=== PATIENT | male | born 1985 | race Caucasian/White ===

== ENCOUNTER 2025-04-13 11:46 | Emergency (ER) | payer OTHER, SELFPAY ==
[2025-04-13 12:00] VITALS: BP 146/67; PULSE 84; RESP 15; TEMP 36.7; O2SAT 96; BMI 39.5
--- NOTE | 2025-04-13 12:00 | ED.GENADULT ---
HPI - General Adult General Chief complaint: Wound/Laceration Stated complaint: hand inj Time Seen by Provider: 04/13/25 12:00 Source: patient Mode of arrival: ambulatory Limitations: no limitations History of Present Illness ED Provider: Dr. Gibson [facility] narrative: Injured left thumb cutting prep can with a serrated knife trying to cut a pumpkin. The patient was at work today. 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 Able to move them without any issues. Related Data Allergies Allergy/AdvReac Type Severity Reaction Status Date / Time amoxicillin Allergy Hives Verified 04/13/25 12:02 Review of Systems Review of Systems: Pertinent review of systems as mentioned in HPI. All other system otherwise negative. PMFSH Past Medical History [facility] Narrative: None Social History Social History Advance Directives: No Advance Directives Information Provided: Yes Physical Exam ED Exam Exam: General: Pleasant, no distress, interacting appropriately Head: Normacephalic, atraumatic Extremities: Laceration over the palmar aspect of left thumb. Range of motion intact no signs of tendon injury Skin: Warm and dry Psychiatric: Appropriate mood and thoughts Vital Signs: Vital Signs - 24 hr 04/13/25 12:00 Temperature 98.1 F Pulse Rate 84 Respiratory Rate 15 Blood Pressure 146/67 H Pulse Oximetry 96 Oxygen Delivery Method Room Air BMI result Body Mass Index 39.5 Procedures Laceration Laceration 1: Site: upper extremity Side (If applicable): left Size (cm): 3 Description: linear Depth: simple, single layer Local Anesthetic: lidocaine 1% Amount of anesthesia used (mL): 10 Pre-repair: irrigated extensively Skin layer closed with: nylon Size (cm): 5-0 Number of sutures: 6 Technique: simple, interrupted Medical Decision Making Medical Decision Making [facility] Narrative: 39-year-old male presented hospital today for left thumb injury after cutting it with a serrated knife. We will plan to repair this. Appears to be deep to the dermis. Differential Diagnosis Differential Diagnoses: The differential diagnosis associated with the presentation includes Laceration Discharge Plan Discharge Clinical Impression: Laceration Patient Disposition: Home, Self-Care Instructions: Care For Your Stitches (ED) Additional Instructions: [address] Remove in 10-14 days. Keep it clean and dry. Print Language: Cameroonian
[2025-04-13] MEDS: Diphth,Pertus(ACell),Tet Adult 0.5 ML SYRINGE IM (12:49)
[2025-04-13] MEDS: Lidocaine HCl 1 % 20 ML VIAL 5 ML INFILTRATI (12:50)
[2025-04-13 12:52] VITALS: BP 146/67; PULSE 84; RESP 15; TEMP 36.7; O2SAT 96
--- OUTSIDE RECORDS SUMMARY | 2025-04-13 15:36 | XMS_ITS | Clinical Summary ---
Author Organization [facility] Address [address] [address] Phone Care Team Providers Care Physician Relations Manager Name Role Phone Pcp, Unknown Primary Care Provider Unavailabl e Medications atorvastatin (LIPITOR) 10 MG tablet 1 tablet 10/05/2014 Active chlorthalidone (HYGROTON) 25 MG tablet 1 tablet Active lisinopril (PRINIVIL,ZESTRI L) 30 MG tablet 1 tab(s) Acti ve LORazepam (ATIVAN) 0.5 MG tablet 1 tab(s) Active Active Problems Problem Noted Date Diagnosed Date Anxiety disorder 05/14/2017 Hyperlipidemia 05/14/2017 Hypertension 05/14/2017 Obesity 05/14/2017 Immunizations Immunization Administration Dates Next Due DTP 07/04/1989, 6,1984,08/27,1984 Hepatitis B 06/30/1996,01/21/1996,12/25/1995 Hib,PRP-T 1984 INFLUENZA, SPLIT VIRUS, TRIV ALENT W/ PRESERVATIVE IM 04/05/2016,05/04/2015 MMR 12/25/1995,08/13/1985 Meningococcal MCV4P 01/25/2003 Polio - OPV 01/01/1990, 6,1984,07/03 Td (adult) 5 Lf Tetanus Toxo id, PF, Adsorbed 01/04/1998 Tdap 07/01/2013 Varicella 08/14/1992 Family History Medical History Relation Comments Hypertension Father 2 Diabetes mellitus Mother 2 Hypertension Mother 2 CV disease Sibling 2 Relation Status Comments Father 1 Alive Father 2 Mother 1 Alive Mother 2 Sibling 1 Sibling 2 Social History Tobacco Use Types Packs/Day Years Used Date Smoking Tobacco: Never Assessed Education Answer Date Recorded Are you interested in more education? Not on jeremiah e 10/11/2022 Are you concerned about learning? Not on file 10/11/2022 No 10/11/2022 No 10/11/2022 Digital Access Answer Date Recorded No 11/08/2022 No 11/08/2022 Reliable internet access at home? Not on file 11/08/2022 Device with a working camera? Not on file Sex and Gender Information Value Date Recorded Sex Assigned at Not on file Legal Sex Male 9:15 PM EDT Gender Identity Not on file Sexual Orientation Not on file Last Filed Vital Signs Vital Sign Reading Time Taken Comments Blood Pressure 112/60 11/22/2016 4:52 AM EDT Pulse 120 11/22/2016 4:52 AM EDT Temperature - - Respiratory Rate - - Oxygen Saturation - - Inhaled Oxygen Concentration - - Weight 101.4 kg (223 lb 9.6 oz) 11/22/2016 4:52 AM EDT Height 163.8 cm (5' 4.5 ) 11/22/2016 4:52 AM EDT Body Mass Index 37.79 11/22/2016 4:52 AM EDT Plan of Treatment Health Maintenance Due Date Last Done Comments BLOOD PRESSURE 1984 CREATININE LEVEL 1984 LIPID PANEL 1984 POTASSIUM LEVEL 1984 DEPRESSION SCREENING 1996 SMOKING Hx and SMOKELESS TOBACCO SCREENING 1997 HEPATITIS C SCREENING 2002 HIV ONE-TIME SCREENING (18-6 5 YEARS) 2002 Adult Td,Tdap Booster 07/01/2023 07/01/2013 , 01/04/1998 INFLUENZA VACCINE (#1) 2025 , 04/05/2016, 05/04/2015 COVID-19 VACCINE (3 2024-2 6 season) 2025 07/25/2020, 06/27/2020 HIB VACCINES Aged Out 1984 No longer eligi ble based on patient's age to complete this topic MENINGOCOCCAL VACCINES (ACWY) Completed 01/25/2003 HEPATITIS A VACCINES Aged Out No long er eligible based on patient's age to complete this topic MENINGOCOCCAL VACCINES (B) Aged Out N o longer eligible based on patient's age to complete this topic PNEUMOCOCCAL VACCINES (0-49 years) Aged Out No longer eligible b ased on patient's age to complete this topic Medical Devices Not on file Insurance [place] [address] [place] [address] [place] [address] [place] [address] [place] [place] [address] HMO Care Teams Physician Relations Manager Relationship Specialty Start Date End Date Pcp, Unknown PCP - General 03/24/20 Additional Source Comments The information contained in this document represents components of the legal health record. It is not the complete legal health record.[facility]
== END 2025-04-13 12:53 | disposition home or self-care (01) ==
PROVIDERS: Emergency Provider Student in an Organized Health Care Education/Training Program
DX: S61.012A Laceration without foreign body of left thumb without damage to nail, initial encounter (principal); W26.0XXA Contact with knife, initial encounter; Y93.G3 Activity, cooking and baking; Y92.219 Unspecified school as the place of occurrence of the external cause; Y99.0 Civilian activity done for income or pay
CPT/HCPCS: 12002; 90471; 90715; 99282; 99284; J2003

== ENCOUNTER → 2025-04-15 08:57 | Outpatient (BNVA) | payer OTHER, SELFPAY | PROVIDERS: Visit Provider Internal Medicine | DX: S61.012A Laceration without foreign body of left thumb without damage to nail, initial encounter (principal); W26.0XXA Contact with knife, initial encounter | CPT/HCPCS: 99202 ==

== ENCOUNTER → 2025-04-22 09:04 | Outpatient (BNVA) | payer OTHER, SELFPAY | PROVIDERS: Visit Provider Internal Medicine | DX: S61.012D Laceration without foreign body of left thumb without damage to nail, subsequent encounter (principal); W26.0XXD Contact with knife, subsequent encounter; Z48.02 Encounter for removal of sutures; Z02.79 Encounter for issue of other medical certificate | CPT/HCPCS: 99212; 99213 ==